=== PATIENT | female | born 1970 | race African-American/Black ===

== ENCOUNTER 2020-07-28 15:29 | Outpatient (CLI) | payer OTHER, SELFPAY ==
--- NOTE | ~2020-07-28 | US_ITS ---
US renal BI 07/28/2020 16:15 Procedure: Realtime transabdominal ultrasound of the kidneys and bladder. Indication: Chronic kidney disease stage III Comparison: No prior studies for comparison. Findings: Renal echotexture is normal bilaterally without hydronephrosis, contour deforming mass or r enal calculus. The right kidney measures 9 cm and left kidney measures 8.8 cm. Bladder within normal limits. Impression: 1: Unremarkable renal ultrasound. No stones, masses or hydronephrosis. Reviewed, dictated and finalized at location A. IT SUPPORT COUNSELOR Impression: 1: Unremarkable renal ultrasound. No stones, masses or hydronephrosis.
== END 2020-07-28 15:30 | disposition home or self-care (01) ==
PROVIDERS: PCP Internal Medicine; Visit Provider Internal Medicine
DX: N18.30 Chronic kidney disease, stage 3 unspecified (principal)
CPT/HCPCS: 76775

== ENCOUNTER 2021-09-09 09:43 | Outpatient (CLI) | payer OTHER, SELFPAY ==
--- NOTE | 2021-09-09 09:30 | ECG_ITS ---
Measurements Intervals [place] Rate: 60 P: 30 UT: 164 QRS: 7 QRSD: 104 T: 90 QT: 343 QTc: 345 Interpretive Statements SINUS RHYTHM POOR R WAVE PROGRESSION, ANTERIOR LEADS NONSPECIFIC T-WAVE ABNORMALITY- ANT/HIGH LAT LEADS BASELINE ARTIFACT- I, II, III, AVR, AVL, AVF BORDERLINE ECG Electronically Signed On 09-09-2021 10:12:20 CHIEF PHARMACIST by Diogenes Casiano D.O.
[2021-09-09 10:16] LABS: Anion Gap 10 mmol/L (8-16); Blood Urea Nitrogen 42 mg/dL (7-17); Calcium 9.6 mg/dL (8.4-10.2); Carbon Dioxide 26 mmol/L (22-30); Chloride 105 mmol/L (98-107); Estimated Glomerular Filt Rate 16; Glucose 109 mg/dL (65-110); Potassium 3.2 mmol/L (3.4-5.0); Sodium 141 mmol/L (137-145)
== END 2021-09-09 09:44 | disposition home or self-care (01) ==
LOC: ANHSURGERY 09:46
PROVIDERS: Anesthesiology; PCP Internal Medicine; Visit Provider Plastic Surgery
DX: Z01.818 Encounter for other preprocedural examination (principal); I10 Essential (primary) hypertension; Z79.899 Other long term (current) drug therapy
CPT/HCPCS: 36415; 80048; 93005

== ENCOUNTER 2021-09-14 01:27 | Day surgery (SDC) | payer OTHER, SELFPAY ==
[2021-09-08 12:08] VITALS: BMI 39.0
--- NOTE | 2021-09-08 12:24 | PC.NURSE ---
Report to the Outpatient Waiting Room, entrance under the green pavilion located off [facility], at time 6:00 on date 09/14/21. OR Time: 7:30. - You will be asked a series of questions to screen for COVID 19 for your protection. - A mask is required within the hospital. - No visitors are allowed at this time. Preoperative COVID Testing Requirements: No COVID Test needed if: (proof is required; if not received patient will have Rapid Test prior to entry) - Patient has received COVID Vaccine at least 14 days prior to procedure date or - Patient has positive COVID test result within last 90 days of surgery date. COVID Test needed if above criteria is not met Patients may have clear liquids (water, carbonated beverages, clear teas, apple juice) until 3 hours prior to surgery (4:30) with a maximum of 20 ounces. - No food from midnight until time of surgery Take the following medications with a SIP of water the morning of surgery: AMLODIPINE Medications to discontinue per physician: N/A Date to take last dose: N/A Please no make-up, nail belgian, hairspray, perfume, deodorant, or body powder the day of surgery. No jewelry (including any body piercings) or valuables the day of surgery, leave them at home. Please take a shower or bath the night before, or the morning of, surgery with an antibacterial soap. Wear comfortable, loose fitting clothing. - Jewelry must be removed prior to entering the operating room. Rings and piercings that are not removed may be cut off. - The hospital will not accept responsibility for valuables. - Please leave all valuables, including medications, at home the day of surgery. If you are going home after surgery, a licensed tanker driver must drive you home. - NO public transportation without another adult. - We recommend that an adult stay with you for 24 hours following discharge. - We also recommend that you do not drive, make important decision, drink alcoholic beverages, or take any drugs that were not prescribed by your health care provider for at least 24 hours after your discharge time. Follow any additional instructions given to you from your surgeon. Telephone instructions given to JAYDEN ZAMUDIO and asked if any additional questions and then verbalized understanding. Patient advised to call surgeon office or pre surgery nurse liaison [phone] if any additional questions.
[2021-09-14] VITALS (7 sets, daily range): BP systolic 136–171; BP diastolic 72–98; PULSE 57–63; RESP 16–20; TEMP 36.7; O2SAT 94–100
--- NOTE | 2021-09-14 06:44 | P.PNAN_ITS ---
Anes - Initial Pre Proc Eval Procedure: Operation Date: 09/14/21 07:30 Proposed Procedures p Delayed Repair Left Thumb Extensor Pollicis Brevis and Extensor Pollicis Longus, Possible Tendon Transfer - Hakeem Mena MD Date/Time: 09/14/21 06:44 Surgeon: Hakeem Mena MD Pre Op Diagnosis: laceration left thumb extensor tendon Patient Data Age: 51 Gender: F Height: 1.7 m Weight: 113.13 kg Allergies Allergy/AdvReac Type Severity Reaction Status Date / Time No Known Allergies Allergy Verified 09/14/21 06:25 Home Medications Medication Instructions Recorded Confirmed Type amlodipine 10 mg PO DAILY 09/08/21 09/14/21 History atenolol-chlorthalidone 1 tablet PO DAILY 09/08/21 09/14/21 History hydralazine 100 mg PO DAILY 09/08/21 09/14/21 History Patient hx anesthesia problems: none Family hx anesthesia problems: none Results Review: All pre-operative results and documents have been reviewed as part of the pre-operative evaluation. [facility] Past Medical History Medical History (Updated 09/14/21 @ 06:45 by Kin Pina MD) CKD (chronic kidney disease) HTN (hypertension) Morbid obesity Surgical History Surgical History (Updated 09/14/21 @ 06:59 by Kin Pina MD) H/O arthroscopic knee surgery H/O: hysterectomy Social History Social History Smoking status: Never smoker Alcohol intake: never Substance use: never Substance use type: does not use Living arrangements: with family Spiritual care concerns: No Anes - Eval Final PreProcedure Day of Procedure 09/14/21 06:44 Patient weight: morbidly obese Heart: regular rate and rhythm Lungs: clear to auscultation Airway: Mallampati scale class II Neurological: alert and oriented Last oral intake: >/= 8 hours ASA classification: III Emergent: no Anesthetic plan: proceed Anesthesia type and monitoring: general LMA and standard monitoring Results Review: All pre-operative results and documents have been reviewed as part of the pre-operative evaluation. Informed Consent: The patient's anesthetic plan and its attendant risks and benefits were discussed with the patient/family/POA. Questions were solicited and answers provided to the satisfaction of the patient/family/POA.
[2021-09-14] MEDS: SODIUM CHLORIDE 0.9% IV 500 ML 30 ML IV CONT (07:17)
[2021-09-14 07:22] LABS: INR 0.9; Prothrombin Time 11.7 Seconds (11.1-14.7)
[2021-09-14 07:23] LABS: Partial Thromboplastin Time 28.6 SECONDS (22.3-36.8)
--- NOTE | 2021-09-14 07:32 | WPDHPUPDATE1 ---
History and Physical Update Update Date/Time: 09/14/21 07:32 History and Physical has been reviewed, including an updated exam of the patient. There are NO changes in the patient's condition. Risks, benefits, and alternatives have been discussed and questions answered. Patient agrees to proceed with procedure.
[2021-09-14] MEDS: LIDO 1%/EPINEPHRINE 1:100,000 50 ML VIAL 30 ML INFILTRATE (08:04)
--- NOTE | 2021-09-14 09:45 | P.OP_ITS ---
Procedure Note - Detailed Date of Procedure 09/14/21 Pre-op Diagnosis laceration left thumb extensor tendon Post-op Diagnosis same Procedure Performed Delayed primary repair lacerated extensor pollicis longus in zone 2 Surgeon Hakeem Mena MD Clinical Rehabilitation Coordinator Ronnie Anesthesia general Indications Left thumb extensor deficit resulting from skin laceration 5-1/2 weeks prior to surgery. Findings Healed laceration of the extensor pollicis longus left thumb zone 2 with 6 mm tendon gap. Description of Procedure The left thumb was marked at the scar as the patient waited in the holding area. She was then taken to the operating room and placed supine on the operating table. Time-out was held and confirmed. She was given general anesthesia and the extremity was prepped and draped in the usual fashion. Markings for the incision were placed over the extensor thumb centered on the metacarpophalangeal joint. The course of the EPL had been marked out in the holding area with the patient applying extensor force. That tendon was weakly palpable. The patient could not actively extend the distal phalanx beyond 0?. The area was locally infiltrated with 1% lidocaine with epinephrine. The t ourniquet was inflated after wrapping the extremity with an Jesse wrap for exsanguination. The longitudinal incision allowed elevation of skin flaps and view to the injury site. No obvious laceration was noted in the sagittal bands or extensor tendons. I dissected out the tendons proximal to the metacarpophalangeal joint several centimeters and was able to demonstrate extension of the proximal phalanx at the metacarpophalangeal joint. I was not able to generate extension of the distal phalanx beyond 0* with traction on the EPL. The central slip was dissected circumferentially and we were able to easily demonstrate hyper extension of the distal phalanx with traction on that segment of tendon. Extensor tenolysis was performed in the area underlying the healed skin laceration. Traction distal to the MPJ did not improve range of motion at the IP joint. Further evaluation of the central slip after meticulously eliminating the epi tendinous tissue revealed a scar filled gap in the central slip. This was excised exposing non scarred tendon ends, the gap was approximately 6 mm. Tendon ends were isolated to allow placement 3-0 Ethibond 2 strand locking repair. The gap was closed and the knot tied. Additional 3-0 Ethibond modified Douglas suture was placed to better approximate the dorsal tendinous tissue. I followed with the a 6-0 nylon epitendinous stitch across the extensor half of this repair. This placed the IP joint in about 5? of extension at rest and permitted only 10-15 degrees of passive flexion. The skin was then closed with a running 5 0 nylon. A soft bandage and thumb spica Orthoglass splint was applied with the thumb in 0? extension. No additional anesthetic was infiltrated. She received no antibiotics. She received 1000 mg of oral Tylenol preop and 15 mg of IV Toradol preop . She is being discharged home with instructions in wound care and follow-up. She is to follow up in 2 weeks. She is instructed keep the splint on. A prescription for hydrocodone 5/325 number 10 was sent to her pharmacy. Estimated Blood Loss 2 Tourniquet Time 90 Drains No Packing No Pathology none sent Complications No immediate complications Condition stable Disposition PACU
--- NOTE | 2021-09-14 09:46 | SUR.PHASEI ---
Simple mask removed at 0945.
== END 2021-09-14 11:00 | disposition home or self-care (01) ==
PROVIDERS: Anesthesiology; PCP Internal Medicine; Visit Provider Plastic Surgery
PROC: (CPT 26418; principal; 2021-09-14 07:30)
DX: S66.222A Laceration of extensor muscle, fascia and tendon of left thumb at wrist and hand level, initial encounter (principal); W26.9XXA Contact with unspecified sharp object(s), initial encounter; I12.9 Hypertensive chronic kidney disease with stage 1 through stage 4 chronic kidney disease, or unspecified chronic kidney disease; N18.9 Chronic kidney disease, unspecified; E66.01 Morbid (severe) obesity due to excess calories; Z68.39 Body mass index [BMI] 39.0-39.9, adult
CPT/HCPCS: 26418; 36415; 80048; 85610; 85730; 93005; A9270; J1170; J2250; J2405; J2704; J3010; J7040